=== PATIENT | male | born 1960 | race Caucasian/White ===

== ENCOUNTER 2023-05-27 18:49 | Emergency (ER) | payer MEDICARE, MEDICAID ==
[~2023-05-27] VITALS: Ht 170.2 cm; Wt 76.8 kg
[2023-05-27] MEDS ORDERED: DexAMETHasone 4 MG TAB PO ONE (23:45)
[2023-05-27] MEDS ORDERED: cefTRIAXone SOD 1,000 MG VL IM ONE (23:45)
[2023-05-27] MEDS ORDERED: IPRATROPIUM BROM 0.5 MG/2.5ML INH SOL NEB ONE (23:45)
[2023-05-27] MEDS ORDERED: ALBUTEROL MEDNEB 2.5 mg/3ml NEB NEB ONE (23:45)
[2023-05-27] MEDS ORDERED: BENZ200C64 PO (23:50)
[2023-05-27] MEDS ORDERED: ALBU108A5 IN (23:50)
[2023-05-28 01:13] VITALS: BP 135/72; PULSE 109; RESP 18; TEMP 98.9; O2SAT 96
== END 2023-05-28 01:16 | disposition home or self-care (01) ==
LOC: ER 18:49
DX: J40 Bronchitis, not specified as acute or chronic (principal); I10 Essential (primary) hypertension; E78.5 Hyperlipidemia, unspecified
CPT/HCPCS: 71045; 94640; 96372; 99283; J0696; J7644; J8540